=== PATIENT | female | born 1990 | race African-American/Black ===

== ENCOUNTER 2021-05-30 20:31 | Emergency (ER) | payer OTHER ==
[~2021-05-30] VITALS: Ht 160 cm; Wt 107.0 kg
[2021-05-30] MEDS ORDERED: ASPIRIN 81 MG CHEW TAB PO ONE (20:45)
[2021-05-30 21:09] LABS: BASOPHILS % 0.4 % (0.0-1.0); EOSINOPHILS # (AUTO) 0.1 (0.0-0.4); EOSINOPHILS % 0.6 % (0.0-6.0); HEMATOCRIT 41.5 % (34.2-44.1); HEMOGLOBIN 13.4 g/dL (12.0-16.0); LYMPHOCYTES # (AUTO) 3.1 (1.0-3.2); LYMPHOCYTES % 29.5 % (18.0-39.1); MEAN CORPUSCULAR HEMOGLOBIN 27.8 pg (28-32); MEAN CORPUSCULAR HGB CONC 32.3 g/dL (31-35); MEAN CORPUSCULAR VOLUME 86.1 fL (81-99); MONOCYTES # (AUTO) 0.5 (0.2-0.8); MONOCYTES % 5.1 % (4.4-11.3); NEUTROPHILS # (AUTO) 6.7 (2.1-6.9); PLATELET COUNT 376 x10e3/uL (140-360); RED BLOOD COUNT 4.82 x10e6/uL (3.6-5.1); RED CELL DISTRIBUTION WIDTH 12.9 % (11.7-14.4)
[2021-05-30] MEDS ORDERED: LORAZEPAM INJ 2 MG/ML VIAL IV STA (21:10)
[2021-05-30 21:29] LABS: ALANINE AMINOTRANSFERASE 18 IU/L (0-55); ALKALINE PHOSPHATASE 75 IU/L (40-150); ANION GAP 17.6 mmol/L (8-16); BLOOD UREA NITROGEN 11 mg/dL (7-26); BUN/CREATININE RATIO 13 (6-25); CALCIUM 8.8 mg/dL (8.4-10.2); CARBON DIOXIDE 21 mmol/L (22-29); CHLORIDE 105 mmol/L (98-107); CREATINE KINASE 238 IU/L (29-168); CREATININE, SERUM 0.84 mg/dL (0.57-1.11); EST GLOMERULAR FILTRATION RATE 96 ML/MIN (60-); GLUCOSE 79 mg/dL (74-118); POTASSIUM 3.6 mmol/L (3.5-5.1); SODIUM 140 mmol/L (136-145)
[2021-05-30 22:04] VITALS: BP 132/65
== END 2021-05-30 22:08 | disposition home or self-care (01) ==
LOC: ER 20:41
DX: I49.1 Atrial premature depolarization (principal); R06.02 Shortness of breath; F41.9 Anxiety disorder, unspecified; R94.31 Abnormal electrocardiogram [ECG] [EKG]
CPT/HCPCS: 36415; 71045; 80053; 81025; 82550; 82553; 83880; 84484; 85025; 99284; J2060

== ENCOUNTER 2022-08-13 15:48 | Emergency (ER) | payer OTHER ==
[~2022-08-13] VITALS: Ht 160 cm; Wt 110.2 kg
[2022-08-13] MEDS ORDERED: LIDOCAINE HCL 1% LOCAL INJ 20 ML VIAL INJ ONE (17:00)
[2022-08-13] MEDS ORDERED: LIDOCAINE HCL 1% LOCAL INJ 20 ML VIAL ONE (17:06)
[2022-08-13] MEDS ORDERED: IBUPROFEN600 MG PO (17:26)
[2022-08-13] MEDS ORDERED: ULTRAM 50MG50 MG PO (17:26)
[2022-08-13] MEDS ORDERED: CEPHALEXIN500 MG PO (17:26)
[2022-08-13] MEDS ORDERED: BACTRIM DS TAB1 EACH PO (17:26)
[2022-08-13] MEDS ORDERED: HYDROCODONE/APAP 5MG-325MG TAB PO PRN (17:30)
[2022-08-13] MEDS ORDERED: HYDROCODONE/APAP 5MG-325MG TAB ONE (17:31)
== END 2022-08-13 17:57 | disposition home or self-care (01) ==
LOC: FSED 16:07
DX: L05.91 Pilonidal cyst without abscess (principal)
CPT/HCPCS: 10080; 99283; J2001